=== PATIENT | male | born 1955 | race Caucasian/White ===

== ENCOUNTER 2019-10-25 12:46 | Inpatient (IN) | payer BC, MEDICARE ==
[2019-10-25 13:14] LABS: #Eosinphils 0.1 thou/uL (0.0-0.7); #Lymphocytes 2.3 thou/uL (1.20-3.40); #Monocytes 0.7 thou/uL (0.11-0.59); #Neutrophils 5.7 thou/uL (1.40-6.50); %Eosinophils 0.8 % (0.0-10.0); %Lymphocytes 25.7 % (21.0-51.0); %Neutrophils 65.4 % (42.0-75.0); Hemoglobin 15.3 g/dL (14.0-18.0); Mean Corpuscular HGB CONC 35.1 g/dL (32.0-36.0); Mean Corpuscular Hemoglobin 31.4 pg (27.0-31.0); Mean Corpuscular Volume 89.5 fL (78.0-98.0); Mean Platelet Volume 8.6 fL (7.4-10.4); Platelet Count 156 thou/uL (130-400); RBC Distribution Width 12.5 % (11.5-14.5); Red Blood Cell (RBC) Count 4.88 mill/uL (4.70-6.10); White Blood Cell (WBC) Count 8.7 thou/uL (4.8-10.8)
--- NOTE | 2019-10-25 13:26 | RAD ---
EXAM: Single view of the chest HISTORY: Chest pain COMPARISON: None FINDINGS: Single view of the chest shows a normal sized cardiomediastinal silhouette. There is no dallin dence of consolidation, mass, or pleural effusion. The bones are unremarkable. IMPRESSION: No evidence of acute cardiopulmonary disease
[2019-10-25 13:45] LABS: ALT (SGPT) 28 U/L (8-55); AST (SGOT) 42 U/L (5-34); Albumin 4.3 g/dL (3.4-4.8); Alkaline Phosphatase 53 U/L (40-110); Anion Gap 12 mmol/L (10-20); BUN (Urea Nitrogen) 15 mg/dL (8.4-25.7); Bilirubin, Total 0.8 mg/dL (0.2-1.2); Calc. Creatinine Clearance 0 mL/min (70-130); Calcium 9.2 mg/dL (7.8-10.44); Carbon Dioxide 25 mmol/L (23-31); Chloride 105 mmol/L (98-107); Estimated GFR-MDRD 67; Globulin 2.8 g/dL (2.4-3.5); Glucose 96 mg/dL (80-115); Potassium 3.8 mmol/L (3.5-5.1); Protein, Total 7.1 g/dL (5.8-8.1); Sodium 138 mmol/L (136-145)
[2019-10-25] MEDS ORDERED: Nitroglycerin 2% Ointment 1 INCH/1 GM Packet ONE (13:50)
[2019-10-25] MEDS ORDERED: Aspirin Chewable 81 MG TAB ONE (13:50)
[2019-10-25 14:16] LABS: CKMB 28.3 ng/mL (0-6.6)
[2019-10-25 14:33] LABS: PTT 30.9 SEC (22.9-36.1); Prothrombin Time 13.5 SEC (12.0-14.7)
[2019-10-25] MEDS ORDERED: Heparin 1,000 UNITS/ML VIAL ONE (14:38)
[2019-10-25] MEDS ORDERED: Heparin 25,000 units/D5W 500 ML ONE (15:00)
[2019-10-25] MEDS ORDERED: hydrALAZINE 20 MG/ML VIAL SLOW IVP PRN (16:36)
[2019-10-25] MEDS ORDERED: Heparin 25,000 units/D5W 500 ML IVPB SCH (16:36)
[2019-10-25] MEDS ORDERED: Morphine 2 MG/ML SYRINGE SLOW IVP PRN (16:36)
[2019-10-25] MEDS ORDERED: Heparin 10,000 UNITS/ 10 ML VIAL SLOW IVP SCH (16:36)
[2019-10-25] MEDS ORDERED: Ondansetron PF 4 MG/2 ML Vial IVP PRN (16:36)
[2019-10-25] MEDS ORDERED: Labetalol HCl 100 MG/20 ML VIAL SLOW IVP PRN (16:36)
[2019-10-25] MEDS ORDERED: Acetaminophen 500 MG TAB PO PRN (16:36)
[2019-10-25] MEDS ORDERED: Ondansetron ODT 4 MG TAB PO PRN (16:36)
[2019-10-25 17:02] VITALS: BMI 35.4
[2019-10-25 17:03] LABS: Troponin I 3.242 ng/mL (< 0.028)
[2019-10-25 17:09] LABS: Hemoglobin 14.8 g/dL (14.0-18.0); Platelet Count 165 thou/uL (130-400)
[2019-10-25 19:57] LABS: Troponin I 5.262 ng/mL (< 0.028)
[2019-10-25] MEDS: Atorvastatin Calcium 40 MG TAB PO SCH (20:32)
[2019-10-25] MEDS: Famotidine 20 MG TAB PO SCH (20:32)
--- NOTE | 2019-10-25 21:31 | HP ---
PRIMARY CARE PROVIDER: Arias Grewal MD CHIEF COMPLAINT: Chest pain. HISTORY OF PRESENT ILLNESS: This is a 64-year-old male, who presents to [facility] Emergency Department at the direction of his primary care provider, Dr. Grewal, after complaining of chest pain with radiation to bilateral upper extremities. The patient states he initially noted the pain approximately 2 days prior to this evaluation, initially thinking he was having reflux and indigestion. The patient states he ingested water, sat upright and eventually the pain subsided after radiating to his upper extremities. The patient states the pain returned the next day at which point he sat upright and attempted to change his position with some relief of symptoms. The patient became concerned of his symptoms potentially being a heart attack and presented to his primary care provider's office for evaluation. The patient underwent EKG evaluation at his PCPs office showing ST-T wave changes concerning for ischemia. The patient was referred to the emergency room undergoing EKG evaluation showing ST-T wave changes in the precordial leads with associated elevated troponin of 2.5. The patient was diagnosed with non-ST elevation myocardial infarction and initiated on heparin infusion after receiving aspirin and topical nitroglycerin. The patient admits to history of coronary artery disease, but mainly history of hypertension in multiple family members. The patient reports personal hypertension history, medically managed with moderate control. The patient denies taking chronic aspirin therapy and remains fairly sedentary and his job duties. No consistent exercise routine. The patient initially rated the pain 5/10 with centrally located with radiation to the upper extremities. PAST MEDICAL HISTORY: 1. Hypertension, medically managed. 2. Question of hyperlipidemia. PAST SURGICAL HISTORY: Reviewed and negative. CURRENT MEDICATIONS: 1. Micardis 40 mg p.o. daily. 2. Hydrochlorothiazide 25 mg p.o. daily. ALLERGIES: NO KNOWN DRUG ALLERGIES. FAMILY HISTORY: Multiple family members with coronary artery disease and hypertension. SOCIAL HISTORY: , accompanied by his in the hospital. Occasional alcohol use. No tobacco or illicit drug use. 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 Functional of all activities of daily living. REVIEW OF SYSTEMS: CONSTITUTIONAL: Negative for weight loss or gain, ability to conduct usual activities. SKIN: Negative for rash, itching. EYES: Negative for double vision, pain. ENT/MOUTH: Negative for nose bleeding, neck stiffness, pain, tenderness. CARDIOVASCULAR: Negative for palpitations, dyspnea on exertion, orthopnea. RESPIRATORY: Negative for shortness of breath, wheezing, cough, hemoptysis, fever or night sweats. GASTROINTESTINAL: Negative for poor appetite, abdominal pain, heartburn, nausea, vomiting, constipation, or diarrhea. GENITOURINARY: Negative for urgency, frequency, dysuria, nocturia. MUSCULOSKELETAL: Negative for pain, swelling. NEUROLOGIC/PSYCHIATRIC: Negative for anxiety, depression. ALLERGY/IMMUNOLOGIC: Negative for skin rash, bleeding tendency. Otherwise negative except as stated per HPI. PHYSICAL EXAMINATION: VITAL SIGNS: On admission, blood pressure 120/71, pulse 82, respiratory rate 18, temperature 98.6 degrees Fahrenheit, O2 saturation 97% on room air. GENERAL APPEARANCE: This is a 64-year-old male, alert and oriented x3, pleasant, conversant, in no acute distress. HEENT: Pupils are equal, round, reactive to light and accommodation. Extraocular muscles are intact. No scleral icterus. No conjunctival injection. Nares are patent. OP is clear. Teeth in good repair. NECK: Supple. No cervical adenopathy. No thyromegaly. No carotid bruits. No JVD appreciated. Cervical spine with full active and passive range of motion. No meningeal signs noted. CHEST: Lungs are clear to auscultation bilaterally. CARDIOVASCULAR EXAM: S1, S2 without noted murmur, rub, or gallop. ABDOMEN: Obese, soft, nontender, and nondistended. Bowel sounds are positive in all 4 quadrants. There is no hepatosplenomegaly. No abdominal bruits. No rebound or guarding appreciated. EXTREMITIES: Warm and dry with good turgor. No clubbing, cyanosis, or asymmetric edema appreciated. Pulses palpable distally at the dorsalis pedis, posterior tibial, and popliteal arteries bilaterally. Capillary refill less than 2 seconds. NEUROLOGIC: Cranial nerves 2 through 12 are grossly intact. No focal or lateralizing signs appreciated. PERTINENT LABORATORY AND X-RAY FINDINGS: Complete metabolic profile within normal limits. Troponin I of 2.5, CK-MB 28.3. CBC within normal limits. PT 13.5, INR 1.0, PTT 30.9. Portable chest x-ray dated 10/25/2019, showed no acute cardiopulmonary process. EKG dated 10/25/2019 by my interpretation shows sinus mechanism with heart rates in the 70s. Normal R-wave progression noted in the precordial leads. Normal axis. ST-T wave changes in the precordial leads in leads V3 through V6. ST depression noted in leads 2, 3, and F. ASSESSMENT AND PLAN: 1. Non-ST elevation myocardial infarction. The patient will be admitted to the telemetry unit. Continue aspirin 325 mg daily. Heparin infusion per protocol. Consult Cardiology Service for timing of cardiac catheterization. Check fasting lipid profile. Continue Lipitor 40 mg at bedtime. Topical nitroglycerin. 2. Hypertension. Continue home blood pressure medication regimen. Additional beta-asmita therapy prior to discharge. 3. Abnormal EKG. See #1 above. Continue telemetry monitoring. Serial EKGs. 4. Prophylaxis. SCDs while in bed. Pepcid 20 mg p.o. b.i.d. Dietitian consult in the a.m. 5. Code status is full. Surrogate medical decision maker is the patient's spouse. Job ID: [id number]
[2019-10-25] MEDS ORDERED: Nitroglycerin 2% Ointment 1 INCH/1 GM Packet TOP SCH (22:00)
[2019-10-25] MEDS: Nitroglycerin 2% Ointment 1 INCH/1 GM Packet TOP SCH ×2 (22:45→22:50)
[2019-10-26] MEDS: Nitroglycerin 0.4 MG TAB (25 Tab Bottle) SL PRN ×4 (00:06→06:12)
[2019-10-26] MEDS ORDERED: Sodium Chloride 0.9% 1,000 ML IV SCH ×2 (01:30→06:47)
[2019-10-26 02:37] LABS: Critical Call Chem Troponin I RESULT DECREASING
[2019-10-26 02:58] LABS: CKMB 65.4 ng/mL (0-6.6); Critical Call CKMB RESULT DECREASING
[2019-10-26] MEDS: Nitroglycerin 2% Ointment 1 INCH/1 GM Packet TOP SCH (05:29)
[2019-10-26] MEDS ORDERED: Nitroglycerin 50 MG/250 ML BOT 250 ML IVPB SCH (06:45)
--- NOTE | 2019-10-26 06:53 | PDOC.EVN ---
Event Note - Event Note Event Note: Rapid response called in regards to chest pain and low blood pressure. Pt was admitted for chest pain and was put on heparin drip/asa/nitro. He had couple episodes of chest pain last night and was given nitro with relief. Around 0600 am he started to have chest pain and was given nitro x2, morphine which dropped his blood pressure. He states that his chest pain did improve a little. He is up in bed talking. Pt states his chest pain feels like a pressure like sensation. called cardiology regarding pt's symptoms and will transfer him to icu to start nitro dirp. will also increase his iv fluids given his low blood pressure. His ekg showed st depression. His trops initially worsened but started to trend down.
[2019-10-26 07:04] LABS: Hemoglobin 13.6 g/dL (14.0-18.0); Mean Corpuscular HGB CONC 34.1 g/dL (32.0-36.0); Mean Corpuscular Hemoglobin 31.2 pg (27.0-31.0); Mean Corpuscular Volume 91.4 fL (78.0-98.0); Mean Platelet Volume 8.8 fL (7.4-10.4); Platelet Count 161 thou/uL (130-400); RBC Distribution Width 12.6 % (11.5-14.5); Red Blood Cell (RBC) Count 4.34 mill/uL (4.70-6.10); White Blood Cell (WBC) Count 11.5 thou/uL (4.8-10.8)
[2019-10-26] MEDS ORDERED: Heparin (Artline) 1,000 ML ONE (07:06)
[2019-10-26 07:25] LABS: Anion Gap 11 mmol/L (10-20); BUN (Urea Nitrogen) 15 mg/dL (8.4-25.7); Calc. Creatinine Clearance 120 mL/min (70-130); Calcium 8.4 mg/dL (7.8-10.44); Carbon Dioxide 22 mmol/L (23-31); Cardiac Risk 4.5 (Less than 4.5); Chloride 106 mmol/L (98-107); Cholesterol 140 mg/dl (< 200 Desired); Estimated GFR-MDRD 76; Glucose 135 mg/dL (80-115); HDL Cholesterol 31 mg/dL (>60 Neg Risk); LDL Cholesterol, Calculated 84 mg/dL; Potassium 3.5 mmol/L (3.5-5.1); Sodium 135 mmol/L (136-145); Triglycerides 123 mg/dL (Less than 150)
--- NOTE | 2019-10-26 07:43 | PDOC.PULCN ---
Pulmonology Consult: HPI - Date of Consult Date: 10/26/19 Time: 07:39 - Consult Details Reason for Consult: STEMI, continued chest pain requiring nitro drip Requesting Physician: Dr. Jaramillo - History of Present Illness HPI: DENVER LAMB is a 64 year-old M with HLD, HTN admitted to the hospital for NSTEMI with ST-T changes in the precordial leads and elevated troponin. He was admitted to telemetry and started on high dose ASA and heparin. Overnight he continued to have chest pain despite sublingual nitro. Debra olsen was called early this AM for chest pain in which he was started on a nitro drip and transferred to the ICU. Currently he is about to undergo cardiac catheterization. Patient endorses chest pain that has not changed in intensity or severity but in frequency, more continuous. Pulmonology Consult: ROS - Review of Systems All systems: reviewed and no additional remarkable complaints except as stated Cardiovascular: chest pain. negative: palpitations, orthopnea Respiratory: no reported symptoms. negative: congestion, cough, short of breath , tachypnea Pulmonology Consult: [facility] Source: patient Past Medical History: Hypertension, Hyperlipidemia - Family History Pertinent family history: CAD, HTN - Social History Alcohol Use: none Drug Use History: none Living Situation: Pulmonology Consult: Meds - Medications Medications: Current Medications Acetaminophen (Tylenol) 1,000 mg PO Q6H PRN PRN Reason: Mild Pain (1-3) Last Admin: 10/26/19 00:32 Dose: 1,000 mg Aspirin (Ecotrin) 325 mg PO DAILY [facility] Atorvastatin Calcium (Lipitor) 40 mg PO HS [facility] Last Admin: 10/25/19 20:32 Dose: Not Given Famotidine (Pepcid) 20 mg PO BID [facility] Last Admin: 10/25/19 20:32 Dose: 20 mg Heparin Sodium (Porcine) (Heparin 1,000 Units/Ml (10 Ml)) 0 units SLOW IVP ASDIR [facility]; Protocol Last Admin: 10/25/19 23:05 Dose: 3,400 unit Hydralazine HCl (Apresoline) 10 mg SLOW IVP Q4H PRN PRN Reason: SBP > 180 and HR < 70 Heparin Sodium/Dextrose (Heparin 25,000 Units/D5w 500 Ml) 500 mls @ 0 mls/hr IVPB INF [facility]; Protocol Nitroglycerin/Dextrose (Nitroglycerin 50 Mg/250 Ml Bot) 250 mls @ 0 mls/hr IVPB INF [facility]; Protocol Sodium Chloride (Normal Saline 0.9%) 1,000 mls @ 125 mls/hr IV .Q8H [facility] Labetalol HCl (Normodyne) 20 mg SLOW IVP Q4H PRN PRN Reason: SBP > 180 and HR >/= 70 Morphine Sulfate (Morphine) 2 mg SLOW IVP Q5MIN PRN PRN Reason: Chest Pain Last Admin: 10/26/19 06:02 Dose: 2 mg Nitroglycerin (Nitrostat) 0.4 mg SL Q5MIN PRN PRN Reason: Chest Pain Last Admin: 10/26/19 06:12 Dose: 0.4 mg Nitroglycerin (Nitro-Bid 2% Ointment) 0.5 inch TOP Q8HR [facility] Last Admin: 10/26/19 05:29 Dose: 0.5 inch Ondansetron HCl (Zofran Odt) 4 mg PO Q6H PRN PRN Reason: Nausea/Vomiting Ondansetron HCl (Zofran) 4 mg IVP Q6H PRN PRN Reason: Nausea/Vomiting Pneumococcal 13-Valent Conj Vacc (Prevnar) 0.5 ml IM .ONCE ONE Stop: 10/26/19 09:01 - Allergies Allergies/Adverse Reactions: Allergies Allergy/AdvReac Type Severity Reaction Status Date / Time No Known Allergies Allergy Verified 10/25/19 16:56 Pulmonology Consult: PE - Physical Exam Deviation from normal: Mildly uncomfortable from chest pain HEENT: moist MMs, sclera anicteric Neck: full ROM Cardiovascular: RRR, no significant murmur Gastrointestinal: soft, non-tender, no distention Musculoskeletal: no edema Neurological: non-focal, moves all 4 limbs Psychiatric: normal affect, A&O x 3 Skin: no rash, normal turgor Pulmonology Consult: Results - Labs Result Diagrams: 10/28/19 03:30 10/28/19 03:30 - EKG Data EKG shows normal: ST-T waves Rate: normal Pulmonology Consult: A/P - Problem (1) Hypertension Current Visit: Yes Code(s): I10 - ESSENTIAL (PRIMARY) HYPERTENSION Status: Chronic Qualifiers: Hypertension type: essential hypertension Qualified Code(s): I10 - Essential (primary) hypertension (2) Hyperlipidemia Current Visit: Yes Code(s): E78.5 - HYPERLIPIDEMIA, UNSPECIFIED Status: Chronic (3) STEMI (ST elevation myocardial infarction) Current Visit: Yes Status: Acute (4) Acute respiratory failure with hypoxia Current Visit: Yes Code(s): J96.01 - ACUTE RESPIRATORY FAILURE WITH HYPOXIA Status: Acute - Time Time: 50% of the time was spent in coordination of care (as documented) at patient's floor/unit and/or counseling patient. Time with Patient: greater than 70 minutes - Plan Plan: 64 yo M with HTN and HLD admitted for management of NSTEMI with transfer to ICU after being started on nitro drip after continued chest pain. 1. STEMI: ST/T changes on EKG from admission in precordial leads. Troponin rising 2-6. On heparin for anticoagulation and 325mg ASA. Currently on nitro drip for continued chest pain. Add morphine. Patient returned from cardiac cath showing 100% occlusion of LAD. CV surg consulted 2. Acute hypoxic respiratory failure: 88% on 3L [place] Suspect new onset heart failure from STEMI. CXR and BNP. 3. HTN: stable, continue medical mgmt. Discussed with Dr. German Addendum - Attending - Attending Attestation Date/Time: 10/28/19 1942 I personally evaluated the patient and discussed the management with Dr. Gonzalez. I agree with the History, Examination, Assessment and Plan documented above with any addition or exceptions noted below. 70 minutes have been devoted to this patient in various activities. I personally reviewed all imaging studies and laboratory data noted within this document. For fifty percent of this time, I was interacting with the patient at the bedside or coordinating care with the care team. For the remainder of the time I was immediately available to the patient in the hospital unit.
[2019-10-26 07:54] LABS: Band 1 % (5-11); Lymphocytes 26 % (21-51); MDiff Complete? YES; Monocytes 7 % (0-10); Neutrophil 62 % (42-75); Platelet Morphology Comment Appears Adequate; RBC Morphology Normal; Reactive Lymphocytes 4 % (0-10)
[2019-10-26] MEDS ORDERED: Midazolam HCl 2 mg/2 ml Vial ONE (07:55)
[2019-10-26 08:00] LABS: CKMB 87.8 ng/mL (0-6.6)
[2019-10-26] MEDS ORDERED: Heparin 25,000 units/D5W 500 ML ONE (08:13)
[2019-10-26] MEDS ORDERED: Albumin 5% 500 ML ONE (08:27)
[2019-10-26] MEDS ORDERED: Morphine 2 MG/ML SYRINGE ONE (08:28)
[2019-10-26] MEDS ORDERED: Iopamidol 370 76% 100 ML VIAL ONE (08:31)
[2019-10-26] MEDS ORDERED: Fentanyl 250 MCG/5 ML VIAL ONE (08:44)
[2019-10-26] MEDS ORDERED: Vecuronium 10 MG VIAL ONE ×2 (08:44→10:33)
[2019-10-26] MEDS ORDERED: Midazolam HCl 5 mg/5 ml Vial ONE (08:44)
[2019-10-26] MEDS ORDERED: Dexmedetomidine 200 MCG/2 ML VIAL ONE (08:44)
[2019-10-26] MEDS ORDERED: Heparin 10,000 UNITS/1 ML VIAL 30,000 UNITS in Sodium Chloride 0.9% 1,000 ML FS SCH (09:00)
[2019-10-26] MEDS ORDERED: HEPARIN IVPB SCH (09:00)
[2019-10-26] MEDS ORDERED: Prevnar 13-Val Conj/PF 0.5 ML SYRINGE IM ONE (09:00)
[2019-10-26] MEDS ORDERED: Aspirin 325 mg Enteric Coated Tablet PO SCH (09:00)
[2019-10-26] MEDS ORDERED: SODIUM CHLORIDE 0.9% IVPB SCH (09:00)
--- NOTE | 2019-10-26 09:14 | CON ---
DATE OF CONSULTATION: TIME: 1 hour. HISTORY: The patient is an unfortunate 64-year-old gentleman, who presents with acute onset of substernal chest pain. The patient has a history of hypertension. He states yesterday he started developing some midsternal chest discomfort. The patient was admitted to the hospital. This morning, he developed recurrent chest discomfort and was transferred to the ICU. The patient reports continued chest discomfort. PAST MEDICAL HISTORY: Hypertension. PAST SURGICAL HISTORY: None. ALLERGIES: NONE. SOCIAL HISTORY: Nonsmoker. PHYSICAL EXAMINATION: GENERAL: Obese gentleman, in mild distress. VITAL SIGNS: Blood pressure 97/67. NECK: No jugular venous distention. LUNGS: Clear to auscultation. HEART: Regular rate and rhythm. Normal S1 and S2. ABDOMEN: Nondistended. EXTREMITIES: Show no edema. VASCULAR: Radial pulses and femoral pulses are 2+. LABORATORY RESULTS: His sodium is 138, potassium 3.8, chloride 105, bicarbonate 25, BUN 15, and creatinine 1.1. Troponin was 6.8. His EKG revealed normal sinus rhythm with marked ST depressions suggestive of ischemia. IMPRESSION: 1. Non-Q-wave myocardial infarction. 2. Hypertension. This gentleman presents with a non-Q-wave myocardial infarction. The patient has had persistent chest pain despite being placed on medical therapy. The patient will proceed with cardiac catheterization. I explained the risks involved with procedure including, OH, bleeding, stroke, cardiac risk and cardiac . The risks involving the stent placement was explained. The patient understands these risks and wished to proceed. PLAN: To proceed with cardiac catheterization. Job ID: [id number]
[2019-10-26] MEDS: Famotidine 20 MG TAB PO SCH (09:37)
[2019-10-26] MEDS ORDERED: Heparin 30,000 units/30 ml VIAL ONE (10:33)
[2019-10-26] MEDS ORDERED: Calcium Chloride 1 GM/10 ML Abboject SYRINGE ONE (10:33)
[2019-10-26] MEDS ORDERED: Sodium Bicarb 50 MEQ/50 ML Abboject 8.4% SYRINGE ONE (10:33)
[2019-10-26] MEDS ORDERED: Magnesium Sulfate 1 GM/2 ML VIAL ONE (10:33)
[2019-10-26] MEDS ORDERED: Norepinephrine 4 MG/4 ML VIAL ONE (10:33)
[2019-10-26] MEDS ORDERED: Heparin 5,000 UNITS/ML VIAL ONE (10:33)
[2019-10-26] MEDS ORDERED: Lidocaine 2% PF 5 ML VIAL ONE (10:33)
[2019-10-26] MEDS ORDERED: Thrombin 5000 UNITS/5 ML VIAL ONE (10:33)
[2019-10-26] MEDS ORDERED: Cardioplegic Soln 1,000 ML BAG ONE (10:33)
[2019-10-26] MEDS ORDERED: Protamine Sulfate 250 MG/25 ML VIAL ONE (10:33)
[2019-10-26] MEDS ORDERED: PROPOFOL 200 MG/20 ML VIAL ONE (10:33)
[2019-10-26] MEDS ORDERED: Aminocaproic Acid 5 GM/20 ML VIAL ONE (10:33)
[2019-10-26] MEDS ORDERED: Nitroglycerin 50 MG/250 ML BOT ONE (10:33)
[2019-10-26] MEDS ORDERED: Lidocaine 1% PF 5 ML VIAL ONE ×2 (10:33)
[2019-10-26] MEDS ORDERED: Potassium Chloride 60 MEQ/30 ML VIAL ONE (10:33)
[2019-10-26] MEDS ORDERED: Papaverine 60 MG/2 ML VIAL ONE (10:33)
[2019-10-26] MEDS ORDERED: Insulin Regular 300 UNITS/3 ML VIAL ONE (11:26)
[2019-10-26] MEDS ORDERED: Amiodarone 150 MG/3 ML VIAL ONE (11:51)
[2019-10-26] MEDS ORDERED: Post-Op Insulin Drip Protocol IVPB ONE (13:06)
[2019-10-26] MEDS ORDERED: HYDROcodone/Acetaminophen 5/325 mg Tablet PO PRN ×2 (13:06)
[2019-10-26] MEDS ORDERED: Hetastarch 6% 500 ML 500 ML IVPB PRN (13:06)
[2019-10-26] MEDS ORDERED: Ondansetron PF 4 MG/2 ML Vial IVP PRN (13:06)
[2019-10-26] MEDS ORDERED: Bisacodyl 5 MG TAB PO PRN (13:06)
[2019-10-26] MEDS ORDERED: DOPamine 400 MG/D5W 250 ML 250 ML IVPB PRN (13:06)
[2019-10-26] MEDS ORDERED: Promethazine HCl 25 MG/ML VIAL IM PRN (13:06)
[2019-10-26] MEDS ORDERED: Potassium Chloride 20 MEQ/100 ML PREMIX BAG IVPB PRN (13:06)
[2019-10-26] MEDS ORDERED: Mag-Al 1200 mg/1200 mg/30 ML UDCUP PO PRN (13:06)
[2019-10-26] MEDS ORDERED: niCARdipine 25 MG in Sodium Chloride 0.9% 250 ML 240 ML IVPB PRN (13:06)
[2019-10-26] MEDS ORDERED: hydrALAZINE 20 MG/ML VIAL SLOW IVP PRN (13:06)
[2019-10-26] MEDS ORDERED: Acetaminophen 325 MG TAB PO PRN (13:06)
[2019-10-26] MEDS ORDERED: Magnesium 2 GM/50 ML 2 GM in Premix Bag 1 BAG IVPB SCH (13:06)
[2019-10-26] MEDS ORDERED: Amiodarone 150 MG in Dextrose 5% in Water 100 ML IVPB SCH (13:06)
[2019-10-26] MEDS ORDERED: Norepinephrine 8 MG/0.9% NS 250 ML IVPB PRN (13:06)
[2019-10-26] MEDS ORDERED: Guaifenesin DM 100-10/5 ML UDCUP PO PRN (13:06)
[2019-10-26] MEDS ORDERED: Bisacodyl 10 MG SUPP PR PRN (13:06)
[2019-10-26] MEDS ORDERED: Nitroglycerin 50 MG/250 ML BOT 250 ML IVPB PRN (13:06)
[2019-10-26] MEDS ORDERED: Fentanyl 100 MCG/2 ML VIAL SLOW IVP PRN (13:06)
[2019-10-26] MEDS ORDERED: Dextrose 5% in Water 1,000 ML IV PRN (13:08)
[2019-10-26] MEDS ORDERED: Dextrose 50% Abboject 50 ML SYRINGE SLOW IVP PRN (13:08)
[2019-10-26] MEDS ORDERED: Insulin Regular 300 UNITS/3 ML VIAL SC PRN (13:08)
[2019-10-26] MEDS: Morphine 2 MG/ML SYRINGE SLOW IVP PRN ×2 (13:50→17:05)
[2019-10-26 13:56] LABS: Actual Bicarbonate (HCO3a) 21.4 mEq/L (22-28); Analyzer IN Cardio OR; Base Excess (BEa) -4.7 mEq/L (-2.0 to +3.0); CO2 Tension 43.3 mmHg (35.0-45.0); Calcium, Ionized 1.12 mmol/L (1.12-1.30); Carboxyhemoglobin (COHb) 0.9 gm% (0.0-3.0); Hemoglobin (Hb) 14.4 g/dL (14.0-18.0); O2 Tension (PaO2) 131.5 mmHg (> 80.0); Potassium - ABG Lab 4.09 mmol/L (3.70-5.30); pH, Arterial 7.31 (7.35-7.45)
[2019-10-26 13:59] LABS: Hemoglobin 14.4 g/dL (14.0-18.0); Mean Corpuscular HGB CONC 33.6 g/dL (32.0-36.0); Mean Corpuscular Hemoglobin 30.6 pg (27.0-31.0); Mean Corpuscular Volume 91.1 fL (78.0-98.0); Mean Platelet Volume 9.2 fL (7.4-10.4); Platelet Count 150 thou/uL (130-400); RBC Distribution Width 12.3 % (11.5-14.5); White Blood Cell (WBC) Count 20.6 thou/uL (4.8-10.8)
--- NOTE | 2019-10-26 13:59 | RAD ---
Portable frontal chest radiograph: 10/26/2019 COMPARISON: 10/25/2019 HISTORY: Evaluate chest following CABG FINDINGS: Endotracheal tube in place, terminating at the level the clavicular heads. Drainage catheters overlie the mediastinum. Right-sided vascular catheter present, distal tip overlyi ng region of right atrium. New midline sternotomy wires are present. Mild pulmonary vascular congestion with mild increased nonspecific perihilar density, left greater than right. Partial consol idation/collapse of left lower lobe noted. IMPRESSION: Postoperative changes consistent with interval midline sternotomy.
[2019-10-26] MEDS: CEFAZOLIN 2 GM in Premix Bag 1 BAG IVPB SCH ×2 (14:01→21:02)
[2019-10-26] MEDS: Fentanyl 100 MCG/2 ML VIAL SLOW IVP PRN ×2 (14:02→16:40)
[2019-10-26] MEDS: Amiodarone 450 MG in Dextrose 5% in Water 250 ML IVPB SCH ×2 (14:03→21:02)
[2019-10-26] MEDS: HUMULIN R 100 UNITS in Sodium Chloride 0.9% 100 ML IVPB SCH ×2 (14:03→23:40)
[2019-10-26 14:06] LABS: INR-International Normal Ratio 1.3; PTT 29.4 SEC (22.9-36.1); Prothrombin Time 16.5 SEC (12.0-14.7)
[2019-10-26 14:11] LABS: ALV-art Gradient 527.375 (0-20); Puncture Site ALINE
[2019-10-26 14:30] LABS: Anion Gap 11 mmol/L (10-20); BUN (Urea Nitrogen) 14 mg/dL (8.4-25.7); Calc. Creatinine Clearance 129 mL/min (70-130); Calcium 7.8 mg/dL (7.8-10.44); Carbon Dioxide 20 mmol/L (23-31); Chloride 111 mmol/L (98-107); Estimated GFR-MDRD 82; Glucose 158 mg/dL (80-115); Potassium 4.2 mmol/L (3.5-5.1); Sodium 138 mmol/L (136-145)
[2019-10-26 14:39] LABS: Band 13 % (5-11); Lymphocytes 11 % (21-51); MDiff Complete? YES; Monocytes 5 % (0-10); Neutrophil 70 % (42-75); Platelet Morphology Comment Appears Adequate; RBC Morphology Normal
--- NOTE | 2019-10-26 15:35 | OP ---
DATE OF PROCEDURE: 10/26/2019 PREOPERATIVE DIAGNOSIS: Acute anterior lateral myocardial infarction. PROCEDURE PERFORMED: Coronary artery bypass graft emergency x2, good quality left internal mammary artery to 1.5 to 2 mm left anterior descending artery and a saphenous vein graft to 1.25 to 1.5 medial branch of the diagonal. ALCOHOLIC COUNSELOR: Ramo. TRANSFUSION: None. DESCRIPTION OF PROCEDURE: After adequate anesthesia had been obtained, the patient was prepped and draped. Dr. Ralph harvested a segment of saphenous vein from the left thigh, while I performed a median sternotomy harvesting the left internal mammary artery. The patient was heparinized and mammary divided distally. The patient had huge amount of mediastinal fat and this was essentially resected to allow access to the aorta and the mammary artery was tracked medial to the long. Aorta and right atrium were cannulated. Cardiopulmonary bypass was begun. Vessels were inspected for grafting. The aorta was crossclamped and a liter of [place] cardioplegic solution was given. Following this, saphenous vein was anastomosed to the diagonal and left internal mammary artery to the LAD. Cross-clamp was removed and the partial occluding clamp placed in a single proximal anastomosis performed on the aortic root and marked with a ring. Following this, the patient was fully rewarmed and weaned from cardiopulmonary bypass. Prior to protamine administration, the patient fibrillated and two shocks were not successful and his venous cannula was reinserted through the pursestring that had been placed initially and cardiopulmonary bypass resumed. The patient was then defibrillated twice before converting to sinus rhythm. He was then given rest on the cardiopulmonary bypass for about 10 minutes and then weaned again. Protamine was given systemically while decannulation was carried out and both suture lines were secured with a Prolene suture. Mediastinal drains x2 were placed and after obtaining good hemostasis, the sternum was reapproximated with #7 interrupted wire using vancomycin paste on the sternal edges, platelet rich blood and platelet poor plasma. Intraoperatively, the anterior apex was rather sluggish pre and postop, but somewhat better postop. PA pressures were elevated by palpation with estimated PAD of 25. The left atrium was large on transesophageal echo and the patient had estimated right ventricular pressures of about 55. He was to be taken to the ICU in guarded condition. Job ID: [id number]
--- NOTE | 2019-10-26 16:23 | PDOC.HOSPP ---
- Subjective Encounter Date: 10/26/19 Encounter Time: 14:25 Subjective: f/u for NSTEMI and emergent CABG x 2v [facility] Pt with ventricular fibrillation during the procedure requiring electrical cardioversion. - Objective Vital Signs & Weight: Vital Signs (12 hours) Temp Pulse Resp BP Pulse Ox 10/26/19 16:00 15 10/26/19 14:00 97.8 F 10/26/19 13:45 100 10/26/19 13:40 75 122/63 10/26/19 08:00 94 L 10/26/19 07:01 94 L Weight Weight 254 lb 7 oz Most Recent Monitor Data Heart Rate from ECG 69 NIBP 92/67 NIBP BP-Mean 75 Respiration from ECG 0 SpO2 93 I&O: 10/25/19 10/26/19 10/27/19 06:59 06:59 06:59 Output Total 250 Balance -250 Result Diagrams: 10/26/19 13:40 10/26/19 13:40 Additional Labs: Accuchecks 10/26/19 10/26/19 10/26/19 16:02 15:13 13:48 POC Glucose 163 H 170 H 170 H 10/26/19 10/26/19 10/26/19 13:19 12:25 11:22 POC Glucose 92 142 H 168 H 10/26/19 10/26/19 10:47 09:59 POC Glucose 141 H 128 H Laboratory Tests 10/25/19 10/25/19 10/25/19 13:03 13:03 16:19 WBC 8.7 Hgb 15.3 Band Neuts % (Manual) Troponin I 2.487 H* 3.242 H* Triglycerides Cholesterol LDL Cholesterol, Calc HDL Cholesterol 10/25/19 10/25/19 10/25/19 17:00 19:13 22:17 WBC Hgb 14.8 Band Neuts % (Manual) Troponin I 5.262 H* 6.801 H* Triglycerides Cholesterol LDL Cholesterol, Calc HDL Cholesterol 10/26/19 10/26/19 10/26/19 01:49 04:52 04:52 WBC 11.5 H Hgb 13.6 L Band Neuts % (Manual) 1 L Troponin I 5.980 H* Triglycerides 123 Cholesterol 140 LDL Cholesterol, Calc 84 HDL Cholesterol 31 10/26/19 10/26/19 04:52 13:40 WBC Hgb Band Neuts % (Manual) 13 H Troponin I 6.603 H* Triglycerides Cholesterol LDL Cholesterol, Calc HDL Cholesterol Radiology Reviewed by me: Yes (PCXR - lines/tubes in place, surgical changes noted) EKG Reviewed by me: Yes (Tele - SR) Hospitalist ROS - Medication Medications: Active Medications Generic Name Dose Route Start Last Admin Trade Name Freq PRN Reason Stop Dose Admin Albuterol/Ipratropium 3 ml 10/26/19 13:00 10/26/19 13:58 Duoneb NEB 3 ml [id number] [facility] Administration Atorvastatin Calcium 40 mg 10/25/19 21:00 10/25/19 20:32 Lipitor PO Not Given HS [facility] Fentanyl 50 mcg 10/26/19 13:06 10/26/19 14:02 Sublimaze SLOW IVP 10/28/19 12:59 50 mcg Q2H PRN Administration Severe Pain (7-10) Amiodarone HCl 150 mg/ 103 mls @ 10 mls/min 10/26/19 13:06 10/26/19 13:40 Dextrose/Water IVPB 10/26/19 17:00 103 mls NOW [facility] Administration Amiodarone HCl 450 mg/ 259 mls @ 0 mls/hr 10/26/19 13:06 10/26/19 14:03 Dextrose/Water IVPB 259 mls INF [facility] Administration Protocol Per Protocol Cefazolin Sodium/Dextrose 2 gm 50 mls @ 100 mls/hr 10/26/19 14:00 10/26/19 14 :01 / Device IVPB 10/27/19 06:29 50 mls Q8HR [facility] Administration Insulin Human Regular 100 101 mls @ 0 mls/hr 10/26/19 13:08 10/26/19 14:03 units/ Sodium Chloride IVPB 101 mls INF [facility] Administration Protocol As Directed Morphine Sulfate 2 mg 10/26/19 13:06 10/26/19 13:50 Morphine SLOW IVP 2 mg Q15MIN PRN Administration Severe Pain (7-10) - Exam General - other findings: sedate on mech ventilation Eye: anicteric sclera ENT: normocephalic atraumatic, no oropharyngeal lesions ENT - other findings: ETT in place Neck: supple, symmetric, no JVD, no thyromegaly Heart: RRR, no gallops, no rubs, normal peripheral pulses Respiratory - other findings: diminished in bases, surgical dressing on sternum Gastrointestinal: soft, non-tender, non-distended, normal bowel sounds, no palpable masses Extremities: no cyanosis, no clubbing, no edema Skin: normal turgor, no lesions Neurological - other findings: sedate on mech ventilation Psychiatric: somnolent Hosp A/P (1) NSTEMI (non-ST elevated myocardial infarction) Code(s): I21.4 - NON-ST ELEVATION (NSTEMI) MYOCARDIAL INFARCTION Status: Acute (2) 3-vessel coronary artery disease Status: Acute (3) Hyperlipidemia Code(s): E78.5 - HYPERLIPIDEMIA, UNSPECIFIED Status: Acute (4) Cardiogenic postoperative shock Code(s): T81.11XA - POSTPROCEDURAL CARDIOGENIC SHOCK, INITIAL ENCOUNTER Status : Acute Plan: mild, continue Levophed/Dopamine titrating to clinical response (5) Hypertension Code(s): I10 - ESSENTIAL (PRIMARY) HYPERTENSION Status: Chronic Qualifiers: Hypertension type: essential hypertension Qualified Code(s): I10 - Essential (primary) hypertension - Plan respiratory therapy, incentive spirometry, DVT proph w/SCDs Continue post CABG critical care Vasopressor support Sedation protocol PCXR in am AM lab: BMP, CBC Cardiac Rehab when stable
[2019-10-26] MEDS: Ketorolac Tromethamine 30 MG/ML VIAL IVP SCH ×2 (17:03→23:38)
[2019-10-26] MEDS ORDERED: Morphine 2 MG/ML SYRINGE SLOW IVP PRN (17:04)
[2019-10-26] MEDS ORDERED: Propofol 1,000 MG/100 ML VIAL IV PRN (17:04)
[2019-10-26] MEDS ORDERED: Propofol BOLUS 1,000 MG/100 ML VIAL IV PRN (17:04)
[2019-10-26] MEDS ORDERED: Fentanyl BOLUS 250 ML IVPB PRN (17:04)
[2019-10-26] MEDS ORDERED: fentaNYL Citrate/PF 2,000 MCG in Sodium Chloride 0.9% 60 ML IV SCH (17:04)
[2019-10-26] MEDS ORDERED: DISCONTINUE PREVIOUS NARCOTIC PAIN MEDICATIONS AND BENZODIAZEPINES FS SCH (17:04)
[2019-10-26 19:07] LABS: Hemoglobin 14.2 g/dL (14.0-18.0)
[2019-10-26] MEDS: Lorazepam 2 MG/ML VIAL SLOW IVP PRN ×2 (19:17→23:36)
[2019-10-26 19:22] LABS: Potassium 4.3 mmol/L (3.5-5.1)
[2019-10-26] MEDS ORDERED: Famotidine/PF 20 mg/2ml Vial SLOW IVP SCH (21:00)
[2019-10-26] MEDS: Atorvastatin Calcium 40 MG TAB PO SCH (21:03)
[2019-10-27 03:16] LABS: #Lymphocytes 1.2 thou/uL (1.20-3.40); #Monocytes 1.6 thou/uL (0.11-0.59); #Neutrophils 17.1 thou/uL (1.40-6.50); %Basophils 0.2 % (0.0-1.0); %Monocytes 8.1 % (0.0-10.0); %Neutrophils 85.7 % (42.0-75.0); Hemoglobin 13.9 g/dL (14.0-18.0); Mean Corpuscular HGB CONC 33.6 g/dL (32.0-36.0); Mean Corpuscular Hemoglobin 30.8 pg (27.0-31.0); Mean Corpuscular Volume 91.4 fL (78.0-98.0); Platelet Count 183 thou/uL (130-400); RBC Distribution Width 12.6 % (11.5-14.5); Red Blood Cell (RBC) Count 4.53 mill/uL (4.70-6.10); White Blood Cell (WBC) Count 19.9 thou/uL (4.8-10.8)
[2019-10-27 03:36] LABS: Anion Gap 11 mmol/L (10-20); BUN (Urea Nitrogen) 18 mg/dL (8.4-25.7); Calc. Creatinine Clearance 101 mL/min (70-130); Calcium 7.8 mg/dL (7.8-10.44); Carbon Dioxide 22 mmol/L (23-31); Chloride 109 mmol/L (98-107); Estimated GFR-MDRD 62; Glucose 133 mg/dL (80-115); Potassium 4.3 mmol/L (3.5-5.1); Sodium 138 mmol/L (136-145)
[2019-10-27] MEDS: Ketorolac Tromethamine 30 MG/ML VIAL IVP SCH ×4 (05:01→23:56)
[2019-10-27] MEDS: CEFAZOLIN 2 GM in Premix Bag 1 BAG IVPB SCH (05:01)
--- NOTE | 2019-10-27 07:57 | RAD ---
EXAM: Single view of the chest HISTORY: Respiratory failure COMPARISON: 10/26/2019 FINDINGS: Single view of the chest shows an enlarged but stable cardiomediastinal silhouette. The pa tient is status post CABG. The lines and tubes are unchanged in position. There is a small left pleural effusion. The bones are unremarkable. IMPRESSION: Stable exam
--- NOTE | 2019-10-27 08:00 | RAD ---
EXAM: Single view of the chest HISTORY: Status post open heart surgery. Endotracheal tube advancement. COMPARISON: 10/26/2019 1:28 PM FINDINGS: Single view of the chest shows an enlarged but stable cardiomediastinal silhouette. The pa tient is status post CABG. The endotracheal tube has been advanced with its tip at the lower border of the clavicles. The other lines and tubes are unchanged in position. There is no evidence of consol idation, mass, or pleural effusion. The bones are unremarkable. IMPRESSION: Appropriate position of endotracheal tube.
[2019-10-27] MEDS: Famotidine 20 MG TAB PO SCH ×2 (08:34→20:21)
[2019-10-27] MEDS: Polyethylene Glycol 3350 17 GM Packet PO SCH (08:34)
[2019-10-27] MEDS: Magnesium 2 GM/50 ML 2 GM in Premix Bag 1 BAG IVPB SCH (08:34)
[2019-10-27] MEDS ORDERED: Aspirin 325 MG TAB PO SCH (09:00)
--- NOTE | 2019-10-27 09:06 | PRG ---
DATE OF SERVICE: 10/27/2019 SERVICE: Pulmonary Medicine. INTERVAL HISTORY: The patient is doing fine from Respiratory standpoint. His oxygen requirements have improved dramatically over the last 24 hours. His blood pressures remain marginal, and he is on some Levophed. Outside of that, there has been no interval change to his condition. His urine output has been marginal overnight. PHYSICAL EXAMINATION: VITAL SIGNS: Afebrile, pulse 85, blood pressure 111/60, respirations 18, saturation 100%, currently on 37% FiO2 delivered with a PEEP of 5. GENERAL: The patient is intubated under the influence of a little sedation. HEENT: Normocephalic and atraumatic. Sclerae white. Conjunctivae pink. Oral mucosa is moist without lesions. LUNGS: Wonderful air entry. Much improvement in the crackles. Some dependent crackles still persist. Rhonchi are noted. There is a prolonged expiratory phase. HEART: Normal rate and regular. ABDOMEN: Soft, nontender, nondistended. Bowel sounds are positive. MUSCULOSKELETAL: No cyanosis or clubbing. There is trace pitting in the bilateral lower extremities. NEUROLOGIC: Grossly nonfocal. LABORATORY DATA: WBC 19.9, hemoglobin 13.9, platelets 183,000. INR 1.3. PH of 7.31, pCO2 of 43, pO2 of 131,000. Creatinine 1.17 and gently uptrending, bicarb 22, chloride 109. IMAGING STUDIES: Chest x-ray demonstrates interval improvement in bilateral opacifications. There is low lung volume and likely a small to moderate right-sided pleural effusion. There is fluid in the fissure. Endotracheal tube is in excellent position currently. There is a right-sided subclavian central venous catheter that terminates in the right atrium. Pulmonary vascular congestion is noted. ASSESSMENT: 1. Acute hypoxic respiratory failure. 2. Acute ST-elevation myocardial infarction, status post coronary artery bypass graft of the left anterior descending artery as well as one other lesion. 3. Acute systolic heart failure, likely improving. DISCUSSION AND PLAN: The patient is going to be placed on a spontaneous breathing trial. If he meets criteria, extubation will certainly be considered. Pulmonary/Critical Care will continue to follow along while the patient remains in this location. He will need to remain in the ICU for at least an additional 24 hours from a lung standpoint. If he goes onto develop increasing respiratory failure, trial of CPAP would be perfectly reasonable. That being said, his oxygen requirements have dramatically improved overnight. Additionally, he has not had any significant arrhythmias on telemetry. As such, my suspicion is he should do well with extubation today. CRITICAL CARE TIME: 30 minutes. Job ID: [id number]
[2019-10-27] MEDS: Amiodarone 450 MG in Dextrose 5% in Water 250 ML IVPB SCH (13:08)
[2019-10-27] MEDS ORDERED: Digoxin 0.5 MG/2 ML AMP SLOW IVP SCH ×2 (16:30→19:15)
--- NOTE | 2019-10-27 19:31 | PDOC.HOSPP ---
- Subjective Encounter Date: 10/27/19 Encounter Time: 18:55 Subjective: f/u s/p CABG x 2v POD #1. Nursing reports A-fib with RVR given Digoxin/ Amiodarone gtt. Pt denies any palpitations but states feeling ok overall. Some cough but no fever. - Objective Vital Signs & Weight: Vital Signs (12 hours) Temp Pulse 10/27/19 16:39 114 H 10/27/19 16:00 98.2 F 10/27/19 12:00 98.4 F 10/27/19 08:00 98.5 F Weight Weight 254 lb 13.67 oz Most Recent Monitor Data Heart Rate from ECG 106 NIBP 86/60 NIBP BP-Mean 68 Respiration from ECG 21 SpO2 100 I&O: 10/26/19 10/27/19 10/28/19 06:59 06:59 06:59 Intake Total 1484.8 1320 Output Total 800 870 Balance 684.8 450 Result Diagrams: 10/27/19 03:09 10/27/19 03:09 Additional Labs: Accuchecks 10/27/19 10/27/19 10/27/19 06:08 05:14 04:03 POC Glucose 120 H 114 H 129 H 10/27/19 10/27/19 10/27/19 03:09 02:03 01:09 POC Glucose 135 H 149 H 147 H 10/27/19 10/26/19 10/26/19 00:15 22:58 22:10 POC Glucose 136 H 128 H 143 H 10/26/19 10/26/19 10/26/19 21:12 20:07 19:27 POC Glucose 134 H 153 H 163 H 10/26/19 18:21 POC Glucose 158 H Laboratory Tests 10/25/19 10/25/19 10/25/19 13:03 13:03 16:19 WBC 8.7 Hgb 15.3 Band Neuts % (Manual) Troponin I 2.487 H* 3.242 H* Triglycerides Cholesterol LDL Cholesterol, Calc HDL Cholesterol 10/25/19 10/25/19 10/25/19 17:00 19:13 22:17 WBC Hgb 14.8 Band Neuts % (Manual) Troponin I 5.262 H* 6.801 H* Triglycerides Cholesterol LDL Cholesterol, Calc HDL Cholesterol 10/26/19 10/26/1920 01:49 04:52 04:52 WBC 11.5 H Hgb 13.6 L Band Neuts % (Manual) 1 L Troponin I 5.980 H* Triglycerides 123 Cholesterol 140 LDL Cholesterol, Calc 84 HDL Cholesterol 31 10/26/19 10/26/19 04:52 13:40 WBC Hgb Band Neuts % (Manual) 13 H Troponin I 6.603 H* Triglycerides Cholesterol LDL Cholesterol, Calc HDL Cholesterol Radiology Reviewed by me: Yes (PCXR - ETT in appropriate position- earlier this am) EKG Reviewed by me: Yes (Tele - A-fib with rates in low 100's) Hospitalist ROS - Medication Medications: Active Medications Generic Name Dose Route Start Last Admin Trade Name Freq PRN Reason Stop Dose Admin Aspirin 325 mg 10/27/19 09:00 10/27/19 08:34 Aspirin PO 325 mg DAILY JOSEPH Administration Atorvastatin Calcium 40 mg 10/25/19 21:00 10/26/19 21:03 Lipitor PO Not Given HS JOSEPH Famotidine 20 mg 10/27/19 09:00 10/27/19 08:34 Pepcid PO 20 mg BID JOSEPH Administration Amiodarone HCl 450 mg/ 259 mls @ 0 mls/hr 10/26/19 13:06 10/27/19 13:08 Dextrose/Water IVPB 259 mls INF JOSEPH Administration Protocol Per Protocol Norepinephrine Bitartrate 250 mls @ 0 mls/hr 10/26/19 13:06 10/27/19 01:51 Levophed IVPB 250 mls PRN PRN Administration To maintain SBP > 90 mmHG Protocol Titrate Magnesium Sulfate 2 gm/ Device 50 mls @ 50 mls/hr 10/27/19 09:00 10/27/19 08: 34 IVPB 10/28/19 09:59 50 mls QAM JOSEPH Administration Fentanyl Citrate 2,000 mcg/ 100 mls @ 0 mls/hr 10/26/19 17:04 10/26/19 17:23 Sodium Chloride IV 11/25/19 17:04 100 mls INF JOSEPH Administration Protocol Per Protocol Ketorolac Tromethamine 15 mg 10/26/19 18:00 10/27/19 17:31 Toradol IVP 10/29/19 18:01 15 mg Q6HR JOSEPH Administration Lorazepam 2 mg 10/26/19 17:04 10/26/19 23:36 Ativan SLOW IVP 11/25/19 17:04 2 mg Q1H PRN Administration Breakthrough agitation Polyethylene Glycol 17 gm 10/27/19 09:00 10/27/19 08:34 Miralax PO 17 gm DAILY JOSEPH Administration - Exam General Appearance: NAD, awake alert Eye: PERRL, anicteric sclera ENT: normocephalic atraumatic, no oropharyngeal lesions Neck: supple, symmetric, no JVD, no thyromegaly, no lymphadenopathy Heart: no murmur, no gallops, no rubs, normal peripheral pulses, irregular Respiratory: no ronchi, no tachypnea Respiratory - other findings: diminished in bases Gastrointestinal: soft, non-tender, non-distended, normal bowel sounds, no palpable masses Extremities: no cyanosis, no clubbing, 1+ LE edema Skin: normal turgor Neurological: cranial nerve grossly intact, no new deficit Musculoskeletal: normal tone, normal strength Psychiatric: normal affect, A&O x 3 Hosp A/P (1) NSTEMI (non-ST elevated myocardial infarction) Code(s): I21.4 - NON-ST ELEVATION (NSTEMI) MYOCARDIAL INFARCTION Status: Acute Plan: Continue medical mgmt, ASA/Lipitor (2) 3-vessel coronary artery disease Status: Acute Plan: s/p CABG x 2v POD #1, continue routine post-CABG protocol (3) Atrial fibrillation with RVR Code(s): I48.91 - UNSPECIFIED ATRIAL FIBRILLATION Status: Acute Plan: Continue Amiodarone gtt, Digoxin PRN, consider Coreg/Cardizem if rate not controlled (4) Hyperlipidemia Code(s): E78.5 - HYPERLIPIDEMIA, UNSPECIFIED Status: Chronic Plan: Lipitor 40mg HS (5) Cardiogenic postoperative shock Code(s): T81.11XA - POSTPROCEDURAL CARDIOGENIC SHOCK, INITIAL ENCOUNTER Status : Acute Plan: Improved, continue serial BP monitoring (6) Hypertension Code(s): I10 - ESSENTIAL (PRIMARY) HYPERTENSION Status: Chronic Qualifiers: Hypertension type: essential hypertension Qualified Code(s): I10 - Essential (primary) hypertension - Plan PT/OT, social insurance administrator, respiratory therapy, DVT proph w/SCDs Continue post CABG critical care Continue Amiodarone gtt Digoxin IV PRN Continue ASA/Lipitor PCXR in am AM lab: BMP, CBC Cardiac Rehab when stable
[2019-10-27] MEDS: Atorvastatin Calcium 40 MG TAB PO SCH (20:20)
[2019-10-27] MEDS ORDERED: Enoxaparin Sodium 30 MG/0.3 ML SYRINGE SC SCH (21:00)
[2019-10-28 04:00] LABS: Anion Gap 7 mmol/L (10-20); BUN (Urea Nitrogen) 21 mg/dL (8.4-25.7); Calc. Creatinine Clearance 102 mL/min (70-130); Calcium 7.4 mg/dL (7.8-10.44); Carbon Dioxide 27 mmol/L (23-31); Chloride 104 mmol/L (98-107); Estimated GFR-MDRD 62; Glucose 120 mg/dL (80-115); Potassium 3.8 mmol/L (3.5-5.1); Sodium 134 mmol/L (136-145)
[2019-10-28] MEDS: Amiodarone 450 MG in Dextrose 5% in Water 250 ML IVPB SCH ×2 (04:11→21:14)
[2019-10-28 04:46] LABS: #Lymphocytes 1.4 thou/uL (1.20-3.40); #Monocytes 1.1 thou/uL (0.11-0.59); #Neutrophils 7.7 thou/uL (1.40-6.50); %Basophils 0.1 % (0.0-1.0); %Eosinophils 0.2 % (0.0-10.0); %Lymphocytes 13.4 % (21.0-51.0); %Neutrophils 75.3 % (42.0-75.0); Hemoglobin 10.7 g/dL (14.0-18.0); Mean Corpuscular HGB CONC 33.4 g/dL (32.0-36.0); Mean Corpuscular Hemoglobin 30.9 pg (27.0-31.0); Mean Corpuscular Volume 92.6 fL (78.0-98.0); Mean Platelet Volume 9.5 fL (7.4-10.4); Platelet Count 102 thou/uL (130-400); Platelet Morphology Comment Appears Decreased; RBC Distribution Width 12.9 % (11.5-14.5); Red Blood Cell (RBC) Count 3.45 mill/uL (4.70-6.10); White Blood Cell (WBC) Count 10.2 thou/uL (4.8-10.8)
[2019-10-28] MEDS: Ketorolac Tromethamine 30 MG/ML VIAL IVP SCH ×2 (05:02→11:38)
--- NOTE | 2019-10-28 08:15 | RAD ---
FRONTAL RADIOGRAPH CHEST PORTABLE UPRIGHT: DATE: 10/28/2019. COMPARISON: 10/27/2019. HISTORY: Evaluate chest following open heart surgery. FINDINGS: The endotracheal tube has been removed. There is a stable right-sided vascular catheter. Heart and mediastinal contours are stable. No pneumothorax is seen. Probable drainage catheter overlies the m idline mediastinum, not optimally characterized secondary to technique and multiple overlying monitor ing leads. IMPRESSION: Interval extubation - otherwise, unchanged. POS: TPC
[2019-10-28] MEDS: Polyethylene Glycol 3350 17 GM Packet PO SCH (09:12)
[2019-10-28] MEDS: Aspirin 81 mg Enteric Coated Tablet PO SCH (09:12)
[2019-10-28] MEDS: Famotidine 20 MG TAB PO SCH ×2 (09:12→21:15)
[2019-10-28] MEDS: Magnesium 2 GM/50 ML 2 GM in Premix Bag 1 BAG IVPB SCH (09:17)
--- NOTE | 2019-10-28 12:29 | PRG ---
DATE OF SERVICE: 10/28/2019 SERVICE: Pulmonary Medicine. INTERVAL HISTORY: The patient is doing well from a respiratory standpoint. He is breathing very comfortably. He has no complaints of chest discomfort, nausea, or vomiting. He has been weaned down to room air. He does not have any chest discomfort and he has been able to get out of bed to the bedside chair today. PHYSICAL EXAMINATION: VITAL SIGNS: Afebrile, pulse 74, blood pressure 103/71, respirations 20, and saturation 96%, currently on room air. GENERAL: The patient is awake and alert, in no apparent distress. LUNGS: Decent air entry. No prolonged expiratory phase or wheezing is appreciated. HEART: Normal rate, regular. ABDOMEN: Soft, nontender, nondistended. Bowel sounds are positive. MUSCULOSKELETAL: No cyanosis or clubbing. There is 1 to 2+ pitting in the bilateral lower extremities. NEUROLOGIC: Grossly nonfocal. LABORATORY DATA: WBC 10.2, hemoglobin 10.7, platelets 102,000 and gently downtrending. Sodium 134. Creatinine 1.17. Basic metabolic profile is otherwise unremarkable. IMAGING: Chest x-ray demonstrates no acute cardiopulmonary abnormality. Cardiomegaly is present. There are still low lung volumes. Right-sided subclavian catheter is unchanged. ASSESSMENT: 1. Acute hypoxic respiratory failure, resolved. 2. Acute ST-elevation myocardial infarction, status post emergent coronary bypass graft of the left anterior descending artery as well as one other lesion. 3. Acute systolic heart failure, likely resolving. 4. Obstructive sleep apnea, possible. DISCUSSION AND PLAN: The patient is doing absolutely fantastic from a respiratory standpoint. He can be transitioned out of the ICU to the telemetry unit. When he leaves the ICU, he will have no further requirements for inpatient Pulmonary or Critical Care opinion, and I will sign off. I have asked the patient to discuss getting a PSG or overnight oximetry study through his PCP after discharge. Please call with additional questions or concerns through time. Job ID: [id number] [facility]
[2019-10-28] MEDS ORDERED: Mag-Al 1200 mg/1200 mg/30 ML UDCUP PO PRN (12:36)
[2019-10-28] MEDS ORDERED: Artificial Tears 18 DROP/0.9 ML EA EYE PRN (12:36)
[2019-10-28] MEDS ORDERED: Bisacodyl 5 MG TAB PO PRN (12:36)
[2019-10-28] MEDS ORDERED: Fentanyl 100 MCG/2 ML VIAL SLOW IVP PRN (12:36)
[2019-10-28] MEDS ORDERED: Mineral Oil ENEMA PR PRN (12:36)
[2019-10-28] MEDS ORDERED: Bisacodyl 10 MG SUPP PR PRN (12:36)
[2019-10-28] MEDS ORDERED: Nitroglycerin 0.4 MG TAB (25 Tab Bottle) SL PRN (12:36)
[2019-10-28] MEDS ORDERED: Famotidine 20 MG TAB PO SCH (12:45)
[2019-10-28] MEDS ORDERED: Furosemide 40 MG TAB PO SCH (12:45)
[2019-10-28] MEDS ORDERED: Potassium Chloride 10 MEQ TAB PO SCH (12:45)
[2019-10-28] MEDS: HYDROcodone/Acetaminophen 5/325 mg Tablet PO PRN ×2 (12:52→17:06)
--- NOTE | 2019-10-28 17:14 | PDOC.HOSPP ---
- Subjective Encounter Date: 10/28/19 Encounter Time: 10:30 Subjective: pt up in bed no complains - Objective Vital Signs & Weight: Vital Signs (12 hours) Temp Pulse Pulse Pulse BP BP BP 10/28/19 16:00 71 112/67 10/28/19 13:20 78 84 119/72 121/61 10/28/19 12:00 99.8 F H 10/28/19 08:00 97.8 F 10/28/19 07:35 Pulse Ox Pulse Ox Pulse Ox 10/28/19 16:00 10/28/19 13:20 94 L 94 L 10/28/19 12:00 10/28/19 08:00 10/28/19 07:35 100 Weight Weight 262 lb 9.129 oz Most Recent Monitor Data Heart Rate from ECG 78 NIBP 96/58 NIBP BP-Mean 70 Respiration from ECG 21 SpO2 98 I&O: 10/27/19 10/28/19 10/29/19 06:59 06:59 06:59 Intake Total 1484.8 3444.3 882 Output Total 800 1270 290 Balance 684.8 2174.3 592 Result Diagrams: 10/28/19 03:30 10/28/19 03:30 Hospitalist ROS - Review of Systems Respiratory: denies: cough, dry, shortness of breath, hemoptysis, SOB with excertion, pleuritic pain, sputum, wheezing, other Cardiovascular: denies: chest pain, palpitations, orthopnea, paroxysmal noc. dyspnea, edema, light headedness, other Gastrointestinal: denies: nausea, vomiting, abdominal pain, diarrhea, constipation, melena, hematochezia, other - Medication Medications: Active Medications Generic Name Dose Route Start Last Admin Trade Name Freq PRN Reason Stop Dose Admin Hydrocodone Bitart/Acetaminophen 1 tab 10/28/19 12:36 10/28/19 12:52 [place] 5/325 PO 1 tab Q4H PRN Administration Moderate Pain (4-6) Hydrocodone Bitart/Acetaminophen 2 tab 10/28/19 12:36 10/28/19 17:06 [place] 5/325 PO 2 tab Q4H PRN Administration Severe Pain (7-10) Aspirin 81 mg 10/28/19 09:00 10/28/19 09:12 Ecotrin PO 81 mg DAILY JOSEPH Administration Atorvastatin Calcium 40 mg 10/25/19 21:00 10/27/19 20:20 Lipitor PO 40 mg HS JOSEPH Administration Amiodarone HCl 450 mg/ 259 mls @ 0 mls/hr 10/26/19 13:06 10/28/19 04:11 Dextrose/Water IVPB 259 mls INF JOSEPH Administration Protocol Per Protocol Polyethylene Glycol 17 gm 10/27/19 09:00 10/28/19 09:12 Miralax PO 17 gm DAILY JOSEPH Administration - Exam Neck: negative: supple, symmetric, no JVD, no thyromegaly, no lymphadenopathy, no carotid bruit, JVD Heart: negative: RRR, no murmur, no gallops, no rubs, normal peripheral pulses, irregular, diminshed peripheral pulses, murmur present, II/IV, III/IV Respiratory: negative: CTAB, no wheezes, no rales, no ronchi, normal chest expansion, no tachypnea, normal percussion, rales, rhonchi, tachypneic, wheezes Hosp A/P (1) 3-vessel coronary artery disease Status: Acute (2) Acute respiratory failure with hypoxia Code(s): J96.01 - ACUTE RESPIRATORY FAILURE WITH HYPOXIA Status: Acute (3) Atrial fibrillation with RVR Code(s): I48.91 - UNSPECIFIED ATRIAL FIBRILLATION Status: Acute (4) Cardiogenic postoperative shock Code(s): T81.11XA - POSTPROCEDURAL CARDIOGENIC SHOCK, INITIAL ENCOUNTER Status : Acute (5) NSTEMI (non-ST elevated myocardial infarction) Code(s): I21.4 - NON-ST ELEVATION (NSTEMI) MYOCARDIAL INFARCTION Status: Acute (6) Hypertension Code(s): I10 - ESSENTIAL (PRIMARY) HYPERTENSION Status: Chronic Qualifiers: Hypertension type: essential hypertension Qualified Code(s): I10 - Essential (primary) hypertension - Plan s/p CABG, pt doing well. Blood pressure is still low. will monitor.
[2019-10-28] MEDS: Atorvastatin Calcium 40 MG TAB PO SCH (21:15)
[2019-10-29 04:49] LABS: #Eosinphils 0.1 thou/uL (0.0-0.7); #Lymphocytes 1.3 thou/uL (1.20-3.40); #Monocytes 1.1 thou/uL (0.11-0.59); #Neutrophils 7.5 thou/uL (1.40-6.50); %Eosinophils 0.6 % (0.0-10.0); %Lymphocytes 12.9 % (21.0-51.0); %Monocytes 10.9 % (0.0-10.0); %Neutrophils 75.7 % (42.0-75.0); Mean Corpuscular Hemoglobin 31.3 pg (27.0-31.0); Mean Platelet Volume 9.3 fL (7.4-10.4); Platelet Count 116 thou/uL (130-400); RBC Distribution Width 12.6 % (11.5-14.5); Red Blood Cell (RBC) Count 3.51 mill/uL (4.70-6.10); White Blood Cell (WBC) Count 9.9 thou/uL (4.8-10.8)
[2019-10-29] MEDS: HYDROcodone/Acetaminophen 5/325 mg Tablet PO PRN ×5 (07:06→21:49)
[2019-10-29] MEDS ORDERED: Metolazone 5 MG TAB PO SCH (07:30)
[2019-10-29] MEDS: Potassium Chloride 10 MEQ TAB PO SCH (08:29)
[2019-10-29] MEDS: Furosemide 40 MG TAB PO SCH (08:30)
[2019-10-29] MEDS: Famotidine 20 MG TAB PO SCH ×2 (08:30→21:49)
[2019-10-29] MEDS: Amiodarone 200 MG TAB PO SCH ×2 (08:30→21:49)
[2019-10-29] MEDS: Polyethylene Glycol 3350 17 GM Packet PO SCH (08:30)
[2019-10-29] MEDS: Aspirin 81 mg Enteric Coated Tablet PO SCH (08:30)
[2019-10-29] MEDS: Acetaminophen 325 MG TAB PO PRN (14:04)
--- NOTE | 2019-10-29 14:25 | EKG ---
Test Reason : Blood Pressure : / mmHG Vent. Rate : 071 BPM Atrial Rate : 071 BPM P-R Int : 210 ms QRS Dur : 092 ms QT Int : 418 ms P-R-T Axes : 066 009 119 degrees QTc Int : 454 ms Sinus rhythm with 1st degree A-V block Abnormal ECG #2 Confirmed by KAY GUTIERREZ DO ([id number]), video editor HILARY RIVERS ([id number]) on 10/29/2019 2:24:55 PM Referred By: Confirmed By:KAY GUTIERREZ DO
--- NOTE | 2019-10-29 14:25 | EKG ---
Test Reason : Blood Pressure : / mmHG Vent. Rate : 066 BPM Atrial Rate : 066 BPM P-R Int : 208 ms QRS Dur : 094 ms QT Int : 438 ms P-R-T Axes : 012 006 100 degrees QTc Int : 459 ms Normal sinus rhythm Abnormal QRS-T angle, consider primary T wave abnormality Abnormal ECG #2 Confirmed by KAY GUTIERREZ DO ([id number]), film or videotape editor HILARY RIVERS ([id number]) on 10/29/2019 2:25:22 PM Referred By: Confirmed By:KAY GUTIERREZ DO
--- NOTE | 2019-10-29 15:05 | PDOC.HOSPP ---
- Subjective Encounter Date: 10/29/19 Encounter Time: 10:00 Subjective: pt up in bed no complains, encouraged to get up more. - Objective Vital Signs & Weight: Vital Signs (12 hours) Temp Pulse Pulse Pulse Resp BP BP 10/29/19 14:13 72 67 133/79 134/68 10/29/19 12:05 71 68 183/83 H 139/75 10/29/19 11:00 97.8 F 69 18 10/29/19 07:09 97.5 F L 66 18 10/29/19 03:30 98.9 F 67 18 BP Pulse Ox Pulse Ox Pulse Ox 10/29/19 14:13 95 94 L 10/29/19 12:05 95 92 L 10/29/19 11:00 130/68 93 L 10/29/19 07:09 127/75 92 L 10/29/19 03:30 119/63 92 L Weight Weight 262 lb 9.6 oz Most Recent Monitor Data Heart Rate from ECG 78 NIBP 96/58 NIBP BP-Mean 70 Respiration from ECG 21 SpO2 98 I&O: 10/28/19 10/29/19 10/30/19 06:59 06:59 06:59 Intake Total 3444.3 1365.5 Output Total 1270 290 Balance 2174.3 1075.5 Result Diagrams: 10/29/19 03:36 10/28/19 03:30 Additional Labs: Accuchecks 10/28/19 20:45 POC Glucose 148 H Hospitalist ROS - Review of Systems Cardiovascular: denies: chest pain, palpitations, orthopnea, paroxysmal noc. dyspnea, edema, light headedness, other Gastrointestinal: denies: nausea, vomiting, abdominal pain, diarrhea, constipation, melena, hematochezia, other Genitourinary: denies: dysuria, frequency, incontinence, hematuria, retention, other - Medication Medications: Active Medications Generic Name Dose Route Start Last Admin Trade Name Freq PRN Reason Stop Dose Admin Acetaminophen 650 mg 10/28/19 12:36 10/29/19 14:04 Tylenol PO 650 mg Q6H PRN Administration Headache/Fever or Pain Hydrocodone Bitart/Acetaminophen 1 tab 10/28/19 12:36 10/29/19 14:04 [place] 5/325 PO 1 tab Q4H PRN Administration Moderate Pain (4-6) Hydrocodone Bitart/Acetaminophen 2 tab 10/28/19 12:36 10/29/19 10:53 [place] 5/325 PO 2 tab Q4H PRN Administration Severe Pain (7-10) Amiodarone HCl 400 mg 10/29/19 09:00 10/29/19 08:30 Cordarone PO 400 mg BID JOSEPH Administration Aspirin 81 mg 10/28/19 09:00 10/29/19 08:30 Ecotrin PO 81 mg DAILY JOSEPH Administration Atorvastatin Calcium 40 mg 10/25/19 21:00 10/28/19 21:15 Lipitor PO 40 mg HS JOSEPH Administration Famotidine 20 mg 10/28/19 21:00 10/29/19 08:30 Pepcid PO 20 mg BID JOSEPH Administration Furosemide 40 mg 10/29/19 09:00 10/29/19 08:30 Lasix PO 40 mg DAILY JOSEPH Administration Polyethylene Glycol 17 gm 10/27/19 09:00 10/29/19 08:30 Miralax PO 17 gm DAILY JOSEPH Administration Potassium Chloride 10 meq 10/29/19 08:00 10/29/19 08:29 Klor-Con 10 PO 10 meq QAM-WM JOSEPH Administration - Exam Neck: negative: supple, symmetric, no JVD, no thyromegaly, no lymphadenopathy, no carotid bruit, JVD Heart: negative: RRR, no murmur, no gallops, no rubs, normal peripheral pulses, irregular, diminshed peripheral pulses, murmur present, II/IV, III/IV Respiratory: negative: CTAB, no wheezes, no rales, no ronchi, normal chest expansion, no tachypnea, normal percussion, rales, rhonchi, tachypneic, wheezes Gastrointestinal: negative: soft, non-tender, non-distended, normal bowel sounds , no palpable masses, no hepatomegaly, no splenomegaly, no bruit, no guarding, no rigidity, tender to palpation, distended, diminished bowl sounds, voluntary guarding Hosp A/P (1) 3-vessel coronary artery disease Status: Acute (2) Acute respiratory failure with hypoxia Code(s): J96.01 - ACUTE RESPIRATORY FAILURE WITH HYPOXIA Status: Acute (3) Atrial fibrillation with RVR Code(s): I48.91 - UNSPECIFIED ATRIAL FIBRILLATION Status: Acute (4) Cardiogenic postoperative shock Code(s): T81.11XA - POSTPROCEDURAL CARDIOGENIC SHOCK, INITIAL ENCOUNTER Status : Acute (5) NSTEMI (non-ST elevated myocardial infarction) Code(s): I21.4 - NON-ST ELEVATION (NSTEMI) MYOCARDIAL INFARCTION Status: Acute (6) Hypertension Code(s): I10 - ESSENTIAL (PRIMARY) HYPERTENSION Status: Chronic Qualifiers: Hypertension type: essential hypertension Qualified Code(s): I10 - Essential (primary) hypertension - Plan s/p CABG, pt doing well. Blood pressure is still low. will monitor. 10/29 pt encouraged to ambulate. Recommended to use I&S. Discharge when ok with CV.HH stable.
--- NOTE | 2019-10-29 16:08 | PDOC.CPN ---
- Subjective Date: 10/29/19 Time: 16:13 Interval history: The pt seen and examined. No overnight events. No cardiac complaints. - Objective Allergies/Adverse Reactions: Allergies Allergy/AdvReac Type Severity Reaction Status Date / Time No Known Allergies Allergy Verified 10/25/19 16:56 Visit Medications: Current Medications Acetaminophen (Tylenol) 650 mg PO Q6H PRN PRN Reason: Headache/Fever or Pain Last Admin: 10/29/19 14:04 Dose: 650 mg Hydrocodone Bitart/Acetaminophen ([place] 5/325) 1 tab PO Q4H PRN PRN Reason: Moderate Pain (4-6) Last Admin: 10/29/19 14:04 Dose: 1 tab Hydrocodone Bitart/Acetaminophen ([place] 5/325) 2 tab PO Q4H PRN PRN Reason: Severe Pain (7-10) Last Admin: 10/29/19 10:53 Dose: 2 tab Al Hydroxide/Mg Hydroxide (Maalox) 30 ml PO Q4H PRN PRN Reason: Indigestion Amiodarone HCl (Cordarone) 400 mg PO BID [facility] Last Admin: 10/29/19 08:30 Dose: 400 mg Artificial Tears (Tears Naturale) 0 drop EA EYE PRN PRN PRN Reason: Dry Eyes Aspirin (Ecotrin) 81 mg PO DAILY [facility] Last Admin: 10/29/19 08:30 Dose: 81 mg Atorvastatin Calcium (Lipitor) 40 mg PO [facility] Last Admin: 10/28/19 21:15 Dose: 40 mg Bisacodyl (Dulcolax) 10 mg PO Q12H PRN PRN Reason: Constipation Bisacodyl (Dulcolax) 10 mg AL Q12H PRN PRN Reason: Constipation [facility] Famotidine (Pepcid) 20 mg PO BID [facility] Last Admin: 10/29/19 08:30 Dose: 20 mg Fentanyl (Sublimaze) 25 mcg SLOW IVP Q2H PRN PRN Reason: Moderate breakthrough pain Stop: 10/30/19 12:37 Furosemide (Lasix) 40 mg PO DAILY [facility] Last Admin: 10/29/19 08:30 Dose: 40 mg Mineral Oil (Fleet Mineral Oil) 133 ml AL DAILYPRN PRN PRN Reason: Constipation Nitroglycerin (Nitrostat) 0.4 mg SL Q5MIN PRN PRN Reason: Chest Pain Polyethylene Glycol (Miralax) 17 gm PO DAILY [facility] Last Admin: 10/29/19 08:30 Dose: 17 gm Potassium Chloride (Klor-Con 10) 10 meq PO QAM-WM [facility] Last Admin: 10/29/19 08:29 Dose: 10 meq Vital Signs & Weight: Vital Signs Temp Pulse Pulse Pulse Resp BP BP 10/29/19 15:27 97.5 F L 69 18 10/29/19 14:13 72 67 133/79 134/68 10/29/19 12:05 71 68 183/83 H 139/75 10/29/19 11:00 97.8 F 69 18 10/29/19 07:09 97.5 F L 66 18 BP BP Pulse Ox Pulse Ox Pulse Ox 10/29/19 15:27 116/71 96 10/29/19 14:13 95 94 L 10/29/19 12:05 95 92 L 10/29/19 11:00 130/68 93 L 10/29/19 07:09 127/75 92 L Weight 262 lb 9.6 oz - Physical Exam General: alert & oriented x3 HEENT: mucus membranes moist Neck: supple neck Cardiac: regular rate and rhythm, S1/S2 Lungs: decreased breath sounds Extremities: no edema - Labs Result Diagrams: 10/29/19 03:36 10/28/19 03:30 Troponin/CKMB CK-MB (CK-2) 87.8 ng/mL (0-6.6) H* 10/26/19 04:52 Troponin I 6.603 ng/mL (< 0.028) H* 10/26/19 04:52 - Telemetry Sinus rhythms and dysrhythmias: sinus rhythm - Assessment/Plan Assessment/Plan: 1. CAD with S/p CABG x 2 on 10/26/2019 with POPE-LAD and SVG- diag - On Coreg, ASA, and Lipitor; Metolazone x1 dose was given today 2. Post-op Afib - remains in SR; on amiodarone 400mg BID since 10/26/2019; on ASA 81mg (not 325mg?) 3. HTN - stable with current med 4. [place] MAR reviewed Pt. seen and eval. by me. I agree with the A/P by the RPG DEVELOPER. he had an episode of coughing this PM. Sternum is stable. RRR, chest clear. R leg incision is draining mildly.gjm
[2019-10-29] MEDS: Carvedilol 3.125 MG TAB PO SCH (16:37)
[2019-10-29] MEDS: Atorvastatin Calcium 40 MG TAB PO SCH (21:49)
[2019-10-30] MEDS: HYDROcodone/Acetaminophen 5/325 mg Tablet PO PRN ×5 (03:03→19:25)
[2019-10-30] MEDS: Carvedilol 3.125 MG TAB PO SCH ×2 (08:53→16:15)
[2019-10-30] MEDS: Famotidine 20 MG TAB PO SCH ×2 (08:53→20:23)
[2019-10-30] MEDS: Amiodarone 200 MG TAB PO SCH ×2 (08:53→20:24)
[2019-10-30] MEDS: Aspirin 81 mg Enteric Coated Tablet PO SCH (08:53)
[2019-10-30] MEDS: Potassium Chloride 10 MEQ TAB PO SCH (08:53)
[2019-10-30] MEDS: Furosemide 40 MG TAB PO SCH (08:53)
[2019-10-30] MEDS: Polyethylene Glycol 3350 17 GM Packet PO SCH (08:53)
[2019-10-30] MEDS ORDERED: Enoxaparin Sodium 40 MG/0.4 ML SYRINGE SC SCH (10:00)
[2019-10-30] MEDS: Acetaminophen 325 MG TAB PO PRN (11:24)
--- NOTE | 2019-10-30 14:13 | PDOC.HOSPP ---
- Subjective Encounter Date: 10/30/19 Encounter Time: 10:30 Subjective: pt up in bed complains of cough. - Objective Vital Signs & Weight: Vital Signs (12 hours) Temp Pulse Pulse Pulse Resp BP BP 10/30/19 13:41 68 70 153/71 H 114/67 10/30/19 12:17 89 90 181/79 H 135/81 10/30/19 11:28 97.5 F L 87 16 10/30/19 07:22 97.8 F 76 17 10/30/19 04:55 97.7 F 87 16 BP Pulse Ox Pulse Ox Pulse Ox 10/30/19 13:41 96 98 10/30/19 12:17 79 L 97 10/30/19 11:28 131/68 96 10/30/19 07:22 128/73 96 10/30/19 04:55 125/70 94 L Weight Weight 261 lb 6.4 oz Most Recent Monitor Data Heart Rate from ECG 78 NIBP 96/58 NIBP BP-Mean 70 Respiration from ECG 21 SpO2 98 I&O: 10/29/19 10/30/19 10/31/19 06:59 06:59 06:59 Intake Total 1365.5 1850 Output Total 290 2950 Balance 1075.5 -1100 Result Diagrams: 10/29/19 03:36 10/28/19 03:30 Hospitalist ROS - Review of Systems Respiratory: reports: cough Cardiovascular: denies: chest pain, palpitations, orthopnea, paroxysmal noc. dyspnea, edema, light headedness, other Gastrointestinal: denies: nausea, vomiting, abdominal pain, diarrhea, constipation, melena, hematochezia, other Genitourinary: denies: dysuria, frequency, incontinence, hematuria, retention, other - Medication Medications: Active Medications Generic Name Dose Route Start Last Admin Trade Name Freq PRN Reason Stop Dose Admin Acetaminophen 650 mg 10/28/19 12:36 10/30/19 11:24 Tylenol PO 650 mg Q6H PRN Administration Headache/Fever or Pain Hydrocodone Bitart/Acetaminophen 1 tab 10/28/19 12:36 10/30/19 11:24 [place] 5/325 PO 1 tab Q4H PRN Administration Moderate Pain (4-6) Hydrocodone Bitart/Acetaminophen 2 tab 10/28/19 12:36 10/30/19 07:29 [place] 5/325 PO 2 tab Q4H PRN Administration Severe Pain (7-10) Amiodarone HCl 400 mg 10/29/19 09:00 10/30/19 08:53 Cordarone PO 400 mg BID JOSEPH Administration Aspirin 81 mg 10/28/19 09:00 10/30/19 08:53 Ecotrin PO 81 mg DAILY JOSEPH Administration Atorvastatin Calcium 40 mg 10/25/19 21:00 10/29/19 21:49 Lipitor PO 40 mg HS JOSEPH Administration Bisacodyl 10 mg 10/28/19 12:36 10/30/19 08:53 Dulcolax PO 10 mg Q12H PRN Administration Constipation Carvedilol 3.125 mg 10/29/19 17:00 10/30/19 08:53 Coreg PO 3.125 mg BID-WM JOSEPH Administration Famotidine 20 mg 10/28/19 21:00 10/30/19 08:53 Pepcid PO 20 mg BID JOSEPH Administration Furosemide 40 mg 10/29/19 09:00 10/30/19 08:53 Lasix PO 40 mg DAILY JOSEPH Administration Polyethylene Glycol 17 gm 10/27/19 09:00 10/30/19 08:53 Miralax PO 17 gm DAILY JOSEPH Administration Potassium Chloride 10 meq 10/29/19 08:00 10/30/19 08:53 Klor-Con 10 PO 10 meq QAM-WM JOSEPH Administration - Exam Neck: negative: supple, symmetric, no JVD, no thyromegaly, no lymphadenopathy, no carotid bruit, JVD Heart: negative: RRR, no murmur, no gallops, no rubs, normal peripheral pulses, irregular, diminshed peripheral pulses, murmur present, II/IV, III/IV Respiratory: negative: CTAB, no wheezes, no rales, no ronchi, normal chest expansion, no tachypnea, normal percussion, rales, rhonchi, tachypneic, wheezes Gastrointestinal: negative: soft, non-tender, non-distended, normal bowel sounds , no palpable masses, no hepatomegaly, no splenomegaly, no bruit, no guarding, no rigidity, tender to palpation, distended, diminished bowl sounds, voluntary guarding Hosp A/P (1) 3-vessel coronary artery disease Status: Acute (2) Acute respiratory failure with hypoxia Code(s): J96.01 - ACUTE RESPIRATORY FAILURE WITH HYPOXIA Status: Acute (3) Atrial fibrillation with RVR Code(s): I48.91 - UNSPECIFIED ATRIAL FIBRILLATION Status: Acute (4) Cardiogenic postoperative shock Code(s): T81.11XA - POSTPROCEDURAL CARDIOGENIC SHOCK, INITIAL ENCOUNTER Status : Acute (5) NSTEMI (non-ST elevated myocardial infarction) Code(s): I21.4 - NON-ST ELEVATION (NSTEMI) MYOCARDIAL INFARCTION Status: Acute (6) Hypertension Code(s): I10 - ESSENTIAL (PRIMARY) HYPERTENSION Status: Chronic Qualifiers: Hypertension type: essential hypertension Qualified Code(s): I10 - Essential (primary) hypertension - Plan s/p CABG, pt doing well. Blood pressure is still low. will monitor. 10/29 pt encouraged to ambulate. Recommended to use I&S. Discharge when ok with CV.HH stable. 10/30 pt in afib rate controlled, hh stable. pt has not had a bm. He has been encouraged to ambulate.
--- NOTE | 2019-10-30 16:11 | PDOC.CPN ---
- Subjective Date: 10/30/19 Time: 16:13 Interval history: The pt seen and examined. No overnight events. No cardiac complaints. - Objective Allergies/Adverse Reactions: Allergies Allergy/AdvReac Type Severity Reaction Status Date / Time No Known Allergies Allergy Verified 10/25/19 16:56 Visit Medications: Current Medications Acetaminophen (Tylenol) 650 mg PO Q6H PRN PRN Reason: Headache/Fever or Pain Last Admin: 10/30/19 11:24 Dose: 650 mg Hydrocodone Bitart/Acetaminophen ([place] 5/325) 1 tab PO Q4H PRN PRN Reason: Moderate Pain (4-6) Last Admin: 10/30/19 11:24 Dose: 1 tab Hydrocodone Bitart/Acetaminophen ([place] 5/325) 2 tab PO Q4H PRN PRN Reason: Severe Pain (7-10) Last Admin: 10/30/19 15:09 Dose: 2 tab Al Hydroxide/Mg Hydroxide (Maalox) 30 ml PO Q4H PRN PRN Reason: Indigestion Amiodarone HCl (Cordarone) 400 mg PO BID [facility] Last Admin: 10/30/19 08:53 Dose: 400 mg Artificial Tears (Tears Naturale) 0 drop EA EYE PRN PRN PRN Reason: Dry Eyes Aspirin (Ecotrin) 81 mg PO DAILY [facility] Last Admin: 10/30/19 08:53 Dose: 81 mg Atorvastatin Calcium (Lipitor) 40 mg PO [facility] Last Admin: 10/29/19 21:49 Dose: 40 mg Bisacodyl (Dulcolax) 10 mg PO Q12H PRN PRN Reason: Constipation Last Admin: 10/30/19 08:53 Dose: 10 mg Bisacodyl (Dulcolax) 10 mg PA Q12H PRN PRN Reason: Constipation Carvedilol (Coreg) 3.125 mg PO BID[facility] Last Admin: 10/30/19 08:53 Dose: 3.125 mg Enoxaparin Sodium (Lovenox) 40 mg SC 0900,2100 [facility] Famotidine (Pepcid) 20 mg PO BID [facility] Last Admin: 10/30/19 08:53 Dose: 20 mg Furosemide (Lasix) 40 mg PO DAILY [facility] Last Admin: 10/30/19 08:53 Dose: 40 mg Mineral Oil (Fleet Mineral Oil) 133 ml PA DAILYPRN PRN PRN Reason: Constipation Nitroglycerin (Nitrostat) 0.4 mg SL Q5MIN PRN PRN Reason: Chest Pain Polyethylene Glycol (Miralax) 17 gm PO DAILY [facility] Last Admin: 10/30/19 08:53 Dose: 17 gm Potassium Chloride (Klor-Con 10) 10 meq PO QAM-WM [facility] Last Admin: 10/30/19 08:53 Dose: 10 meq Vital Signs & Weight: Vital Signs Temp Pulse Pulse Pulse Resp BP BP 10/30/19 15:07 97.4 F L 65 18 10/30/19 13:41 68 70 153/71 H 114/67 10/30/19 12:17 89 90 181/79 H 135/81 10/30/19 11:28 97.5 F L 87 16 10/30/19 07:22 97.8 F 76 17 10/30/19 04:55 97.7 F 87 16 BP Pulse Ox Pulse Ox Pulse Ox 10/30/19 15:07 131/70 96 10/30/19 13:41 96 98 10/30/19 12:17 79 L 97 10/30/19 11:28 131/68 96 10/30/19 07:22 128/73 96 10/30/19 04:55 125/70 94 L Weight 261 lb 6.4 oz - Physical Exam General: alert & oriented x3 HEENT: mucus membranes moist Neck: supple neck Cardiac: regular rate and rhythm, S1/S2 Lungs: clear to auscultation Extremities: no edema - Labs Result Diagrams: 10/29/19 03:36 10/28/19 03:30 Troponin/CKMB CK-MB (CK-2) 87.8 ng/mL (0-6.6) H* 10/26/19 04:52 Troponin I 6.603 ng/mL (< 0.028) H* 10/26/19 04:52 - Telemetry Sinus rhythms and dysrhythmias: sinus rhythm - Assessment/Plan Assessment/Plan: 1. CAD with S/p CABG x 2 on 10/26/2019 with POPE-LAD and SVG- diag - On Coreg, ASA, and Lipitor; Metolazone x1 dose was given today 2. Post-op Afib - he was in Afib around 0400 and converted back to SR around 1300 today; on amiodarone 400mg BID since 10/26/2019; on ASA 81mg and Lovenox was increased to BID from this AM; 3. HTN - stable with current med 4. [place] MAR reviewed * Dr Glover' pt Pt. seen and eval. by me. I agree with the A/P by the [employer]. Chest clear. RRR. gjm
[2019-10-30] MEDS: Atorvastatin Calcium 40 MG TAB PO SCH (20:24)
[2019-10-30] MEDS: Enoxaparin Sodium 40 MG/0.4 ML SYRINGE SC SCH (20:24)
[2019-10-31] MEDS ORDERED: Losartan 25 MG TAB PO SCH (09:00)
[2019-10-31] MEDS: Amiodarone 200 MG TAB PO SCH (09:05)
[2019-10-31] MEDS: Furosemide 40 MG TAB PO SCH (09:05)
[2019-10-31] MEDS: Potassium Chloride 10 MEQ TAB PO SCH (09:05)
[2019-10-31] MEDS: Carvedilol 3.125 MG TAB PO SCH (09:05)
[2019-10-31] MEDS: Famotidine 20 MG TAB PO SCH (09:05)
[2019-10-31] MEDS: Aspirin 81 mg Enteric Coated Tablet PO SCH (09:05)
[2019-10-31] MEDS: Polyethylene Glycol 3350 17 GM Packet PO SCH ×2 (09:06→09:11)
[2019-10-31] MEDS: Enoxaparin Sodium 40 MG/0.4 ML SYRINGE SC SCH (09:06)
[2019-10-31 09:12] VITALS: TEMP 97.8
[2019-10-31 09:50] VITALS: BP 174/87
[2019-10-31] MEDS ORDERED: Atorvastatin Calcium 40 MG TAB PO SCH (21:00)
--- NOTE | 2019-11-01 09:38 | EKG ---
Test Reason : Blood Pressure : / mmHG Vent. Rate : 077 BPM Atrial Rate : 077 BPM P-R Int : 190 ms QRS Dur : 096 ms QT Int : 408 ms P-R-T Axes : 033 022 145 degrees QTc Int : 461 ms Normal sinus rhythm Possible Lateral infarct , age undetermined Marked ST abnormality, possible anteroseptal subendocardial injury Abnormal ECG No previous ECGs available Confirmed by CARLI SCHUMACHER (2) on 11/01/2019 9:37:53 AM Referred By: Confirmed By:CARLI SCHUMACHER
--- NOTE | 2019-11-01 09:38 | EKG ---
Test Reason : Blood Pressure : / mmHG Vent. Rate : 072 BPM Atrial Rate : 072 BPM P-R Int : 208 ms QRS Dur : 100 ms QT Int : 428 ms P-R-T Axes : 056 015 146 degrees QTc Int : 468 ms Normal sinus rhythm Septal infarct , age undetermined Lateral infarct (cited on or before 26-OCT-2019) Marked ST abnormality, possible anterior subendocardial injury Abnormal ECG When compared with ECG of 26-OCT-2019 00:37, (Unconfirmed) No significant change was found Confirmed by CARLI SCHUMACHER (2) on 11/01/2019 9:38:49 AM Referred By: JIGNESH Confirmed By:CARLI SCHUMACHER
--- NOTE | 2019-11-01 09:39 | EKG ---
Test Reason : Blood Pressure : / mmHG Vent. Rate : 064 BPM Atrial Rate : 064 BPM P-R Int : 196 ms QRS Dur : 110 ms QT Int : 458 ms P-R-T Axes : 029 010 130 degrees QTc Int : 472 ms Normal sinus rhythm Lateral infarct (cited on or before 26-OCT-2019) Abnormal ECG When compared with ECG of 26-OCT-2019 05:43, (Unconfirmed) Criteria for Septal infarct are no longer Present Serial changes of evolving Lateral infarct Present Confirmed by CARLI SCHUMACHER (2) on 11/01/2019 9:39:15 AM Referred By: JASON Confirmed By:CARLI SCHUMACHER
--- NOTE | 2019-11-01 09:39 | EKG ---
Test Reason : Blood Pressure : / mmHG Vent. Rate : 069 BPM Atrial Rate : 069 BPM P-R Int : 214 ms QRS Dur : 098 ms QT Int : 438 ms P-R-T Axes : 001 009 142 degrees QTc Int : 469 ms Sinus rhythm with 1st degree A-V block Septal infarct (cited on or before 26-OCT-2019) Lateral infarct (cited on or before 26-OCT-2019) Marked ST abnormality, possible anterior subendocardial injury Abnormal ECG When compared with ECG of 26-OCT-2019 05:08, (Unconfirmed) No significant change was found Confirmed by CARLI SCHUMACHER (2) on 11/01/2019 9:39:06 AM Referred By: JIGNESH Confirmed By:CARLI SCHUMACHER
--- NOTE | 2019-11-01 09:47 | EKG ---
Test Reason : POST CABG Blood Pressure : / mmHG Vent. Rate : 076 BPM Atrial Rate : 076 BPM P-R Int : 232 ms QRS Dur : 100 ms QT Int : 458 ms P-R-T Axes : 031 037 110 degrees QTc Int : 515 ms Sinus rhythm with 1st degree A-V block Lateral infarct (cited on or before 26-OCT-2019) Prolonged QT Abnormal ECG When compared with ECG of 26-OCT-2019 06:29, (Unconfirmed) DC interval has increased Serial changes of evolving Lateral infarct Present Confirmed by CARLI SCHUMACHER (2) on 11/01/2019 9:47:39 AM Referred By: VALENTE Confirmed By:CARLI SCHUMACHER
--- NOTE | 2019-11-01 15:23 | DIS ---
DATE OF ADMISSION: 10/25/2019 DATE OF DISCHARGE: 10/31/2019 HOSPITAL COURSE: This is a 64-year-old gentleman, who was admitted through the emergency room on 10/25 with waxing and waning of chest discomfort, epigastric discomfort, relieved with sitting up that had been going on for 2-3 days. He had a maximal troponin of 6.6 on and maximum CPK MB of 88. He was taken to the geophysical laboratory supervisor the morning after admission, where he was found to have complete occlusion of the proximal LAD and was taken emergently to the operating room where he underwent bypass grafting to the LAD as well as a diagonal branch. Intraoperatively, he was noted to have elevated PA pressures as well as full sized left atrium. He was begun on amiodarone drip postoperatively due to an episode of ventricular fibrillation right after coming off pump as well as the enlarged left atrium to minimize risk of atrial fibrillation. The day after surgery, he did go into atrial fibrillation and this recurred another time, although the rate was better controlled. He will be discharged home on his admitting medicines of telmisartan 40 a day as well as aspirin 81 a day, Eliquis 5 b.i.d., amiodarone 200 b.i.d., Coreg 3.125 b.i.d., atorvastatin 20 at bedtime, and [place] 5 for pain. Discharge and followup instructions have been given. Job ID: [id number]
== END 2019-10-31 11:56 | disposition home or self-care (01) | DRG 233 ==
LOC: ERS 12:46 → 2NO 16:49 → CCU 10-26 06:50 → 2NO 10-28 13:54
PROVIDERS: ADMIT Family Medicine; ATTEND Family Medicine
PROC: 02100Z9 Bypass Coronary Artery, One Artery from Left Internal Mammary, Open Approach (ICD-10-PCS; principal; 2019-10-26)
PROC: 4A023N7 Measurement of Cardiac Sampling and Pressure, Left Heart, Percutaneous Approach (ICD-10-PCS; 2019-10-26)
PROC: 021009W Bypass Coronary Artery, One Artery from Aorta with Autologous Venous Tissue, Open Approach (ICD-10-PCS; 2019-10-26)
PROC: 06BN4ZZ Excision of Left Femoral Vein, Percutaneous Endoscopic Approach (ICD-10-PCS; 2019-10-26)
PROC: 5A1221Z Performance of Cardiac Output, Continuous (ICD-10-PCS; 2019-10-26)
PROC: B2111ZZ Fluoroscopy of Multiple Coronary Arteries using Low Osmolar Contrast (ICD-10-PCS; 2019-10-26)
PROC: B2151ZZ Fluoroscopy of Left Heart using Low Osmolar Contrast (ICD-10-PCS; 2019-10-26)
DX: I21.4 Non-ST elevation (NSTEMI) myocardial infarction (principal); J96.01 Acute respiratory failure with hypoxia; I50.21 Acute systolic (congestive) heart failure; T81.11XA Postprocedural cardiogenic shock, initial encounter; I49.01 Ventricular fibrillation; I97.190 Other postprocedural cardiac functional disturbances following cardiac surgery; I25.10 Atherosclerotic heart disease of native coronary artery without angina pectoris; E78.5 Hyperlipidemia, unspecified; Z79.899 Other long term (current) drug therapy; I11.0 Hypertensive heart disease with heart failure; G47.33 Obstructive sleep apnea (adult) (pediatric)
CPT/HCPCS: 36415; 36416; 36430; 71045; 76942; 80048; 80053; 80061; 82553; 82805; 84484; 85007; 85025; 85027; 85347; 85610; 85730; 86850; 86900; 86901; 93005; 93010; 93458; 93798; 94002; 94003; 94150; 94640; 96365; 99152; 99153; C1769; J0282; J0690; J1160; J1644; J1650; J1815; J1885; J2001; J2060; J2250; J2270; J2440; J2704; J2720; J3010; J3370; J3475; J3480; J3490; J7070; J7620; P9045; Q9967; S0017; S0028

== ENCOUNTER 2019-12-14 09:58 | Outpatient (CLI) | payer BC ==
--- NOTE | 2019-12-14 12:00 | RAD ---
CHEST 2 VIEWS: Date: 12/14/2019 HISTORY: Essential hypertension and cardiomyopathy. COMPARISON: 10/28/2019. FINDINGS: Postop midline sternotomy. Minimal cardiomegaly. Mild vascular congestion with some increased marking s in the bases and small bilateral pleural effusions. No significant new process. IMPRESSION: Bilateral vascular congestion with small bilateral pleural effusions with minimal cardiomegaly, with little change from the prior study. Continue short-term follow-up. POS: [facility]
== END 2019-12-14 09:59 | disposition home or self-care (01) ==
LOC: RAD 09:58
PROVIDERS: ATTEND Internal Medicine Cardiovascular Disease
DX: I10 Essential (primary) hypertension (principal); I25.5 Ischemic cardiomyopathy; I48.0 Paroxysmal atrial fibrillation; J90 Pleural effusion, not elsewhere classified; I51.7 Cardiomegaly; R09.89 Other specified symptoms and signs involving the circulatory and respiratory systems
CPT/HCPCS: 36415; 71046; 80048; 84443; 85025